=== PATIENT | female | born 1955 | race Caucasian/White ===

== ENCOUNTER 2017-07-30 12:26 | Inpatient (IN) | payer OTHER ==
[~2017-07-30] VITALS: Ht 172.7 cm; Wt 82.7 kg
[2017-07-30] VITALS (9 sets, daily range): BP systolic 100–137; BP diastolic 52–71
--- NOTE | 2017-07-30 12:26 | NUR ---
PT TO ROOM 13 VIA WC. UNRESPONSIVE. MAX ASSIST TO STRETCHER.
[2017-07-30 12:46] LABS: HEMATOCRIT 51.5 % (37.0-47.0); HEMOGLOBIN 16.4 g/dl (12.0-16.0); IMMATURE GRANULOCYTES 3.2 % (0.0-1.0); MEAN CELL VOLUME 104.3 fL CALC (80.0-100.0); MEAN CORPUSCULAR HGB 33.2 pG CALC (26.0-32.0); MEAN CORPUSCULAR HGB CONC 31.8 g/L CALC (32.0-36.0); NEUT# 15.58 thou/uL (2.00-7.15); RED BLOOD COUNT 4.94 mill/uL (4.20-5.60); RED CELL DISTRI WIDTH 12.5 % (11.5-15.5)
[2017-07-30 12:59] LABS: ALBUMIN 4.3 g/dL (3.2-5.0); ALKALINE PHOSPHATASE 69 u/l (38-126); BILIRUBIN, TOTAL 0.4 mg/dL (0.0-1.4); BUN 17 mg/dL (8-23); BUN/CREATININE RATIO 12 (12-20 (CALC)); CARBON DIOXIDE 16 mmol/l (22-30); CHLORIDE 101 mmol/l (95-108); CREATININE 1.3 mg/dL (0.5-1.0); GFR 42 ML/MIN (>=60 (CALC)); GFR FOR AFR.AMER. 50 ML/MIN (>=60 (CALC)); INTERNATIONAL NORMALIZED RATIO 0.9 RATIO (0.7-1.3); PROTHROMBIN TIME 9.9 SECONDS (9.0-12.5); SGOT/AST 20 u/l (9-36); SGPT/ALT 19 u/l (11-66); SODIUM 139 mmol/l (137-146); TOTAL PROTEIN 6.8 g/dL (6.3-8.2)
[2017-07-30 13:03] LABS: ANION GAP 27 (6-22 (CALC)); ETHYL ALCOHOL 0 mg/dl (0-30); POTASSIUM 5.3 mmol/l (3.5-5.1)
[2017-07-30 13:11] LABS: MYOGLOBIN 81 ng/mL (0 - 62)
[2017-07-30 13:35] LABS: URINE BILIRUBIN - DIPSTICK NEGATIVE (NEGATIVE); URINE BLOOD DIPSTICK MODERATE (NEGATIVE); URINE COLOR YELLOW; URINE GLUCOSE - DIPSTICK NEGATIVE (NEGATIVE); URINE KETONE TRACE mg/dL (NEGATIVE); URINE LEUK ESTERASE NEGATIVE (NEGATIVE); URINE NITRITE - DIPSTICK NEGATIVE (Negative); URINE PROTEIN - DIPSTICK 30 mg/dL (NEG-TRACE); URINE UROBILINOGEN - DIPSTICK 0.2 E.U./dL (0.2)
[2017-07-30 13:38] LABS: URINE CLARITY SL CLOUDY
[2017-07-30 13:39] LABS: URINE EPITHELIAL CELLS RARE EPI/hpf (0-FEW)
[2017-07-30 13:41] LABS: BARBITURATES NEGATIVE (NEGATIVE); COCAINE NEGATIVE (NEGATIVE); METHADONE NEGATIVE (NEGATIVE); OXCYCODONE NEGATIVE (NEGATIVE); TETRAHYDROCANNABIONOL NEGATIVE (NEGATIVE); TRICYLIC ANTIDEPRESSANTS NEGATIVE (NEGATIVE)
--- NOTE | 2017-07-30 14:18 | NUR ---
PT SIITTIN UP ON STRETCHER W/BIPAP IN PLACE CONSTANTLY TALKING. PT ENCOURAGED TO RELAX. FAN PROVIDED PER PT REQUEST.
--- NOTE | 2017-07-30 14:28 | NUR ---
1243 PT ARRIVED TO ROOM VIA WHEELCHAIR, UNRESPONSIVE. PT WAS BAGGED UPON ARRIVAL BY JALYN RT. 1244 NARCAN GIVEN 0.4MG 1246 EKG DONE. NARCAN 0.8 MG GIVEN. 1250 OPT FOR BiPAP INSTEAD OF INTUBATION PT RESPONSIVE 1255 PT AWAKE AND YELLING 95/43 1257 IV STARTED L HAND
--- NOTE | 2017-07-30 14:33 | NUR ---
PT'S UNCLE KATLYN [place] LEAVES PHONE NUMBER [phone]. HE WAS THE ONE WHO FOUND HER ON HER HANDS AND KNEES TODAY, GASPING TO BREATHE.
[2017-07-30] MEDS ORDERED: CARVEDILOL6.25 MG PO (14:44)
[2017-07-30] MEDS ORDERED: LISINOPRIL10 MG PO (14:45)
--- NOTE | 2017-07-30 14:53 | NUR ---
PT DOING MUCH BETTER ON BiPAP NOW. SATS IN THE HIGH 90s, PT ABLE TO SPEAK CLEARLY OVER IT. MEDS RECONCILED FROM LIST IN HER PAPER WORK.
--- NOTE | 2017-07-30 15:27 | NUR ---
PT CONTINUES ON BiPAP, DOING WELL. UNCLE KATLYN LEAVES WITH HER HOUSE AND CAR KEYS, SAYS TO CALL HIM ANYTIME FOR HER RIDE HOME.
--- NOTE | 2017-07-30 15:44 | NUR ---
SBAR PRINTED TO FLOOR
--- NOTE | 2017-07-30 16:50 | NUR ---
Admission Note Report Given to: GIOVANNA PRITNED TO FLOOR Transported by: X Wheelchair Stretcher Transported with: X Nurse X Transporter X Patent IV X O2 X Brand Attendant
--- NOTE | 2017-07-30 16:57 | NUR ---
female pt received to ICU bed 1 via stretcher accompanied by Joanne Roblero, RN and Joe Fernandez RT in stable condition; pt transferred to bed per staff; weight obtained via bed scale; admission assessment completed at this time; pt alert and oriented; very talkative; denies pain; no n/v noted; c/c fell over from sob after attempting to move a large road sign; resp even and unlabored; lungs coarse throughout with faint exp wheeze; skin color wnl; bipap settings at 18/6, rate 20, FiO2 30%; multimedia services manager cough noted; hr reg; sr on monitor; strong pulses; trace edema noted to ble; bilat knee high pascale hose placed; abd soft with bs present; pt denies bm x2 days/ states norm; zavala to gravity draining slightly cloudy yellow urine; cath frank intact; #18 in lh saline locked; no redness or edema noted at site; plan of care/ meds explained; pt oriented to bed and call light system; will continue to monitor
--- NOTE | 2017-07-30 18:06 | NUR ---
awake in bed; bipap maintained; offers no complaints; no distress/ resp distress noted; iv intact; sr on monitor; zavala to gravity; NPO explained; bed in lowest position; call light within reach
--- NOTE | 2017-07-30 20:00 | NUR ---
PT IN HIGHFOWLERS A/O X3, RESPIRATIONS EVEN AND UNLABORED ON BIPAP 30%. O2 SAT 99%, LUNG SOUNDS COARSE AND WHEEZY. MIKE DRAINING DARK YELLOW URINE. IS NPO AT THIS TIME. ENCOURAGED TO USE CALL LIGHT FOR ASSISTANCE. WILL CONTINUE TO MONITOR. CALL LIGHT IN REACH.
--- NOTE | 2017-07-30 22:00 | NUR ---
IN HIGHFOWLERS WATCHING TV, RESPIRATIONS EVEN AND UNLABORED ON BIPAP 30%, O2 SAT 100%. CALL LIGHT IN REACH.
[2017-07-31] VITALS (17 sets, daily range): BP systolic 102–160; BP diastolic 46–76
--- NOTE | 2017-07-31 00:15 | NUR ---
PT SITTING UP IN BED WATCHING TV, RESPIRATIONS EVEN AND UNLABORED ON BIPAP 30%, O2 SAT 100%. ZOSYN INFUSING TO LH WITH NO COMPLICATIONS. CALL LIGHT IN REACH.
--- NOTE | 2017-07-31 03:00 | NUR ---
RESTING WITH EYES CLOSED, RESPIRATIONS EVEN AND UNLABORED ON BIPAP AT 30%. CALL LIGHT IN REACH.
--- NOTE | 2017-07-31 05:15 | NUR ---
BIPAP REMOVED BY RT AND PLACED ON O2 @2L VIA NC. O2 SAT 98%
[2017-07-31 05:28] LABS: BUN 21 mg/dL (8-23); BUN/CREATININE RATIO 19 (12-20 (CALC)); CALCULATED LDLCHOLESTEROL 70 mg/dL (62-129 (CALC)); CHLORIDE 103 mmol/l (95-108); CHOLESTEROL HDL RATIO 2.5 (<4.4 (CALC)); CREATININE 1.1 mg/dL (0.5-1.0); GFR 50 ML/MIN (>=60 (CALC)); GFR FOR AFR.AMER. > 60 ML/MIN (>=60 (CALC)); HDL CHOLESTEROL 64 mg/dL (>=40); MAGNESIUM 1.7 mg/dL (1.6-2.3); SODIUM 138 mmol/l (137-146); TOTAL CHOLESTEROL 160 mg/dl (0-199); TOTAL TRIGLYCERIDES 135 mg/dl (30-149); VLDL CHOLESTROL 27 mg/dl (1-41 (CALC))
[2017-07-31 05:35] LABS: ANION GAP 13 (6-22 (CALC)); CARBON DIOXIDE 27 mmol/l (22-30); POTASSIUM 5.3 mmol/l (3.5-5.1)
[2017-07-31 05:54] LABS: IMMATURE GRANULOCYTES 2.9 % (0.0-1.0); MEAN CELL VOLUME 99.5 fL CALC (80.0-100.0); MEAN CORPUSCULAR HGB CONC 33.2 g/L CALC (32.0-36.0); NEUT# 16.22 thou/uL (2.00-7.15); RED BLOOD COUNT 4.12 mill/uL (4.20-5.60); RED CELL DISTRI WIDTH 12.7 % (11.5-15.5)
[2017-07-31 06:01] LABS: HEMOGLOBIN 13.6 g/dl (12.0-16.0)
--- NOTE | 2017-07-31 07:10 | NUR ---
PT LAYING IN BED WATCHING TV, PT DENIES ANY SOB, HR 74, RESP. 18, BP 145/63, O2 100% ON 2L VIA NC, COARSE LUNG SOUNDS WITH EXPIRATORY WHEEZES, STRONG RADIAL PULSES, WEAK PEDAL PULSES, 18G LH IV, SALINE LOCKED, NO REDNESS OR BLEEDING AT SITE, MIKE CATH REMAINS IN PLACE, SECURED WITH A CATH STRAP, DRAIN CLOUDY YELLOW URINE, AM ASSESSMENT COMPLETE, SEE INTERVENTIONS, SAFETY MEASURES REINFORCED, CALL BLOUNT WITHIN REACH
--- NOTE | 2017-07-31 07:30 | NUR ---
SETUP ASSISTANCE PROVIDED WITH SIRENA AWTTS
--- NOTE | 2017-07-31 08:20 | NUR ---
PT SITTING UP IN THE BED TALKING ON THE PORTABLE PHONE, NO S/S OF DISTRESS, REMINDED TO CALL FOR ASSISTANCE, CALL BLOUNT WITHIN REACH
--- NOTE | 2017-07-31 09:00 | NUR ---
DR VASQUEZ AT BEDSIDE DISCUSSING PLAN OF CARE
--- NOTE | 2017-07-31 10:20 | NUR ---
VISITOR AT BEDSIDE
--- NOTE | 2017-07-31 11:30 | NUR ---
PT SITTING UP IN THE BED TALKING TO DAUGHTER WHO IS BEDSIDE, PT VERBALIZES NO COMPLAINTS, SETUP ASSISTANCE PROVIDED WITH LUNCH, REMINDED TO CALL FOR ASSISTANCE, CALL BLOUNT WITHIN REACH
--- NOTE | 2017-07-31 13:08 | NUR ---
DR ELI AT BEDSIDE DISCUSSING PLAN OF CARE
--- NOTE | 2017-07-31 14:28 | NUR ---
PT SITTING UP IN BED TALKING ON HER CELL PHONE, NO S/S OF DISTRESS, CALL BLOUNT WITHIN REACH
--- NOTE | 2017-07-31 16:14 | NUR ---
PT LAYING IN BED RESTING WITH EYES CLOSED, AROUSES EASILY TO VERBAL STIMULI, PT DENIES ANY SOB, REMINDED TO CALL FOR ASSISTANCE, CALL BLOUNT WITHIN REACH
--- NOTE | 2017-07-31 17:22 | NUR ---
OFFER MADE TO SET PT UP TO GET WASHED UP, PT REFUSED STATING "I'LL GET WASHED UP WHEN I GET HOME"
--- NOTE | 2017-07-31 17:45 | NUR ---
DAUGHTER AT BEDSIDE
--- NOTE | 2017-07-31 17:56 | NUR ---
MIKE CATH REMOVED, CATH INTACT
--- NOTE | 2017-07-31 18:10 | NUR ---
PT TO ULTRASOUND VIA WC
--- NOTE | 2017-07-31 19:00 | NUR ---
returned from echo. vishnu well.
--- NOTE | 2017-07-31 19:15 | NUR ---
awake. eating jelly beans. denies resp diff. fine coarse breath sounds bilat. athletic monitor shows sinus rhythm. #18 lt hand saline lock. po fluids taken well. voids well. fall precautions cont. daughter @ bedside.
--- NOTE | 2017-07-31 22:00 | NUR ---
watching tv. no c/o resp diff. milk tester shows sinus rhythm.
[2017-08-01] VITALS (13 sets, daily range): BP systolic 95–175; BP diastolic 53–82
--- NOTE | 2017-08-01 00:01 | NUR ---
awake. watching tv. no c/o voiced. o2 cont.
--- NOTE | 2017-08-01 02:00 | NUR ---
eyes closed. resps even & unlabored. no apparent distress.
--- NOTE | 2017-08-01 04:00 | NUR ---
eyes closed. diagnostic cardiac sonographer shows sinus rhythm. o2 cont.
--- NOTE | 2017-08-01 04:45 | NUR ---
lab here. blood drawn.
[2017-08-01 05:06] LABS: HEMATOCRIT 40.9 % (37.0-47.0); HEMOGLOBIN 13.7 g/dl (12.0-16.0); MEAN CELL VOLUME 98.6 fL CALC (80.0-100.0); MEAN CORPUSCULAR HGB CONC 33.5 g/L CALC (32.0-36.0); RED BLOOD COUNT 4.15 mill/uL (4.20-5.60); RED CELL DISTRI WIDTH 12.7 % (11.5-15.5)
[2017-08-01 05:27] LABS: ANION GAP 14 (6-22 (CALC)); BUN 22 mg/dL (8-23); BUN/CREATININE RATIO 19 (12-20 (CALC)); CARBON DIOXIDE 29 mmol/l (22-30); CHLORIDE 100 mmol/l (95-108); CREATININE 1.1 mg/dL (0.5-1.0); GFR 50 ML/MIN (>=60 (CALC)); GFR FOR AFR.AMER. > 60 ML/MIN (>=60 (CALC)); MAGNESIUM 1.8 mg/dL (1.6-2.3); POTASSIUM 4.4 mmol/l (3.5-5.1); SODIUM 138 mmol/l (137-146)
--- NOTE | 2017-08-01 06:00 | NUR ---
awake. watching tv. no c/o voiced.
--- NOTE | 2017-08-01 07:10 | NUR ---
awake in bed watching tv; no distress noted; pt offers no complaints; assessment completed at this time; pt alert and oriented; denies pain; denies difficulty breathing; resp even and unlabored; lungs coarse; skin color wnl; o2 per nc at 2L/sat 100%; pt converted to RA at this time; will continue to monitor resp status/o2 sat; air pollution inspector cough noted; hr reg; strong pulses; no edema noted; bilat knee high pascale hose intact; sr on monitor; abd soft with bs present; no bm noted per screenplay writer; no urine to inspect at this time; pt denies pain or burning s/p catheter removal; #18 in lh flushed and patent; no redness or edema noted at site; plan of care/ am meds explained; call light within reach; will continue to monitor
--- NOTE | 2017-08-01 08:05 | NUR ---
awake in bed; offers no complaints; no distress noted; sr on monitor; o2 sat 97% on RA; iv intact; call light within reach; will continue to monitor
--- NOTE | 2017-08-01 09:15 | NUR ---
Dr Livingston at bedside to assess pt and discuss plan of care
--- NOTE | 2017-08-01 10:05 | NUR ---
awake; assist to bathroom as per request; bath and oral care offered with pt refusal; states "maybe later"; complete linen change done; medicated as per orders; sr on monitor; iv intact; ra; pt offers no complaints; call light within reach; will continue to monitor
--- NOTE | 2017-08-01 11:59 | NUR ---
awake; no distress noted; offers no complaints; deny needs; iv patent; abt infusing without complication; no redness or edema noted at site; sr on monitor; ra; call light within reach; will continue to monitor
--- NOTE | 2017-08-01 13:38 | NUR ---
1338- pt transferred to xray dept via wc accompanied by this typewriter repairer in stable condition; typewriter repairer remains with pt; 1345- returned to unit in stable condition; all monitoring attachements explained and reapplied; will continue to monitor
--- NOTE | 2017-08-01 13:56 | NUR ---
awake in bed; tearful; admits to being upset about recent admissions and insurance issues; reassured; iv intact; sr on monitor; ra; no distress noted; resp even and unlabored; deny needs; call light within reach; will continue to monitor
--- NOTE | 2017-08-01 16:20 | NUR ---
awake in bed; offers no complaints; no distress noted; iv intact; sr on monitor; ra; deny needs; call light within reach; will continue to monitor
--- NOTE | 2017-08-01 18:12 | NUR ---
pt awake in bed; daughter at bedside; no distress noted; resp even and unlabored; iv patent; no redness or edema noted at site; sr on monitor; bed in lowest position; call light within reach
--- NOTE | 2017-08-01 19:30 | NUR ---
awake. no acute distress. hospital monitor shows sinus rhythm ivcd. #18 lt hand saline lock. po fluids taken well. voids per bathroom. speaks of anxiety d/t "everything that is wrong." admits to "don't smoke much." instructed pt about need to stop smoking. pt verbalized understanding. fall precautions cont. requested "something for anxiety." dr perez notified. orders rec'd.
--- NOTE | 2017-08-01 20:20 | NUR ---
xanax 0.25mg po given per request for anxiety.
--- NOTE | 2017-08-01 22:00 | NUR ---
eyes closed. no distress. brewing director shows sinus rhythm ivcd.
[2017-08-02] VITALS (9 sets, daily range): BP systolic 113–178; BP diastolic 56–80
--- NOTE | 2017-08-02 00:01 | NUR ---
eyes closed. no distress. cardiac cath rn shows sinus rhythm.
--- NOTE | 2017-08-02 02:00 | NUR ---
eyes closed. resp even & unlabored. no apparent distress.
--- NOTE | 2017-08-02 04:00 | NUR ---
eyes closed. no apparent distress. chemical project engineer shows sinus rhythm.
--- NOTE | 2017-08-02 06:00 | NUR ---
awake. no acute change in condition this shift.
--- NOTE | 2017-08-02 06:39 | NUR ---
LAB HERE. BLOOD DRAWN.
[2017-08-02 07:00] LABS: HEMATOCRIT 43.5 % (37.0-47.0); HEMOGLOBIN 14.4 g/dl (12.0-16.0); MEAN CELL VOLUME 100.5 fL CALC (80.0-100.0); MEAN CORPUSCULAR HGB 33.3 pG CALC (26.0-32.0); MEAN CORPUSCULAR HGB CONC 33.1 g/L CALC (32.0-36.0); RED BLOOD COUNT 4.33 mill/uL (4.20-5.60); RED CELL DISTRI WIDTH 12.6 % (11.5-15.5)
[2017-08-02 07:15] LABS: CREATININE 1.3 mg/dL (0.5-1.0)
--- NOTE | 2017-08-02 07:30 | NUR ---
pt awake sitting up in bed; no distress noted; pt offers no complaints; assessment completed at this time; pt alert and oriented; denies pain; no n/v noted; denies sob; resp even and unlabored; lungs coarse with faint exp wheeze; skin color wnl; ra; hr reg; strong pulses; no edema noted; sr on monitor; abd soft with bs present; pt denies bm; pt admits to voiding without pain or burning; no urine to inspect at this time; hat placed in commode for accurate output; #18 in lh flushed and patent; no redness or edema noted at site; plan of care/ am meds explained; call light within reach; will continue to monitor
--- NOTE | 2017-08-02 08:16 | NUR ---
awake; no distress noted; offers no complaints; sr on monitor; deny needs; call light within reach; will continue to monitor
--- NOTE | 2017-08-02 10:04 | NUR ---
pt up to recliner; no distress noted; pt offer no complaints; bathe self/ brushed teeth; iv intact; no redness or edema noted at site; sr on monitor; ra; call light within reach; will continue to monitor
--- NOTE | 2017-08-02 11:55 | NUR ---
pt awake in bed speaking with daughter; no distress noted; 99% on ra; sr on monitor; iv intact; call light within reach; will continue to monitor
--- NOTE | 2017-08-02 12:02 | NUR ---
Dr Auguste at bedside to discuss plan of care and assess pt
--- NOTE | 2017-08-02 14:00 | NUR ---
awake in recliner; offers no complaints; sr on monitor; iv intact; no redness or edema noted at site; call light within reach; will continue to monitor
[2017-08-02] MEDS ORDERED: PREDNISONE10 MG PO (15:54)
[2017-08-02] MEDS ORDERED: ZPAK PO (15:54)
[2017-08-02] MEDS ORDERED: LISINOPRIL10 MG PO (16:07)
[2017-08-02] MEDS ORDERED: CARVEDILOL6.25 MG PO (16:07)
--- NOTE | 2017-08-02 16:10 | NUR ---
[facility] rep at bedside; pt released new prescriptions with [facility] rep; pt agree to return to [facility] to cook pickled meat medications;
--- NOTE | 2017-08-02 16:35 | NUR ---
discharge instructions reviewed with pt in detail; pt explained the importance of following up with physicians and taking medications as presrcibed; iv removed from lh with catheter tip intact; no redness or edema noted at site; pt awaiting ride; will continue to monitor
--- NOTE | 2017-08-02 17:00 | NUR ---
Discharge instructions given. Patient verbalizes understanding of same. Discharged in stable condition via Wheelchair to Home with family. All belongings sent with pt.
== END 2017-08-02 17:00 | disposition home or self-care (01) | DRG 189 ==
LOC: ED 12:26 → ED-I 15:19 → ED 15:44 → ICU 15:45
PROVIDERS: Emergency Medicine; ADMIT Internal Medicine; ATTEND Internal Medicine
PROC: 5A09357 Assistance with Respiratory Ventilation, Less than 24 Consecutive Hours, Continuous Positive Airway Pressure (ICD-10-PCS; principal; 2017-07-30)
PROC: 0T9B70Z Drainage of Bladder with Drainage Device, Via Natural or Artificial Opening (ICD-10-PCS; 2017-07-30)
DX: J96.21 Acute and chronic respiratory failure with hypoxia (principal); J44.1 Chronic obstructive pulmonary disease with (acute) exacerbation; I24.8 Other forms of acute ischemic heart disease; I10 Essential (primary) hypertension; I44.7 Left bundle-branch block, unspecified; I34.0 Nonrheumatic mitral (valve) insufficiency; F17.210 Nicotine dependence, cigarettes, uncomplicated; Z91.14 Patient's other noncompliance with medication regimen
CPT/HCPCS: J1650